=== PATIENT | male | born 1955 | race Caucasian/White ===

== ENCOUNTER → 2017-04-03 | Outpatient (CLI) | payer MEDICARE ==
--- NOTE | 2017-04-03 09:10 | MR ---
EXAMINATION TYPE: MR lumbar spine wo con DATE OF EXAM: 04/03/2017 COMPARISON: NONE HISTORY: Low back pain , spondylosis w/o myelopathy. Radiation to the right lower extremity for appro ximately 1 year. TECHNIQUE: Multiplanar, multisequence images of the lumbar spine were acquired. There is multilevel disc desiccation, Schmorl's nodes, and Modic type II endplate changes. T12-L1: There is a small broad-based disc bulge is seen with all paracentral annular tear and without central canal stenosis or neural foraminal narrowing. L1-L2: Right eccentric broad-based disc bulges identified creating mild right neural foraminal narrow ing. No evidence of left neural foraminal narrowing or spinal canal stenosis. L2-L3: Left eccentric disc broad-based disc bulge, facet arthropathy and ligamentum flavum buckling c reate moderate left neural foraminal narrowing and mild right neural foraminal narrowing as well as m ild spinal canal stenosis. L3-L4: Left eccentric broad-based disc bulge create mild to moderate bilateral neural foraminal narro wing with no evidence of spinal canal stenosis. L4-L5: Moderate facet arthropathy, ligamentum flavum buckling, and right lateral disc herniation supe rimposed upon a broad-based disc bulge create severe right neural foraminal narrowing impressing upon the exiting L4 nerve root and mild to moderate left neural foraminal narrowing . L5-S1: Normal disc appearance without desiccation. No herniation, protrusion or disc bulging. No ca nal stenosis is present. Foramina are patent bilaterally. Lumbar segments are intact. No paraspinal masses are identified. Conus medullaris has a normal appe arance terminating at T12-L1. Bone marrow signal is unremarkable other than a T2/T1 hyperintense dejuan gn hemangioma at T1. There is moderate hydronephrosis and right renal pelvic dilatation as well as periureteral fat strand ing as a result of an obstructing probable 1.0 cm calculus that is T2/T1 hypointense. Visualized port ion of the distal ureter is decompressed. Additionally within the left upper pole and lower pole ther e are multiple T2 hyperintense and T1 hypointense probable renal cysts, although incompletely charact erized on this examination. IMPRESSION: 1. Right lateral disc herniation at L4-L5 creating severe right neural foraminal narrowing impressing upon the exiting L4 nerve root. 2. Left eccentric broad-based disc bulge in combination with facet arthropathy and ligamentum flavum buckling create mild spinal canal stenosis at L2-L3. 3. Multilevel degenerative disc disease resulting in variable neural foraminal narrowing as described above. 4. Right moderate hydronephrosis and proximal ureteronephrosis as a result of a 1.0 cm obstructing ca lculus within the proximal ureter just distal to the ureteropelvic junction. Impression number [address] Crouch directly by Dr. Leon at 906am on 04/03/17.
== END | disposition home or self-care (01) ==
LOC: RADMRIMAIN 06:59
PROVIDERS: ATTEND Physical Medicine & Rehabilitation
DX: M48.06 Spinal stenosis, lumbar region (principal); M99.73 Connective tissue and disc stenosis of intervertebral foramina of lumbar region; M51.26 Other intervertebral disc displacement, lumbar region; M51.17 Intervertebral disc disorders with radiculopathy, lumbosacral region; E11.21 Type 2 diabetes mellitus with diabetic nephropathy; M48.8X6 Other specified spondylopathies, lumbar region
CPT/HCPCS: 72148

== ENCOUNTER → 2017-08-06 | Outpatient (CLI) | payer MEDICARE ==
--- NOTE | 2017-08-07 07:56 | XR ---
EXAMINATION TYPE: XR chest 2V DATE OF EXAM: 08/06/2017 COMPARISON: NONE HISTORY: Cough and congestion TECHNIQUE: Frontal and lateral views of the chest are obtained. FINDINGS: There is a trace right pleural effusion on the lateral image extending cranially. Post CAB G changes are seen of the chest with enlarged cardiac silhouette. No focal consolidation or pneumotho rax is noted. No pulmonary vascular congestion. Mild multilevel degenerative changes of the thoracic spine are noted. IMPRESSION: 1. No focal consolidation to suggest pneumonia. 2. Trace right pleural effusion and cardiomegaly may be on the basis of congestive heart failure. No current pulmonary vascular congestion.
== END | disposition home or self-care (01) ==
LOC: RADXRYALE 11:40
PROVIDERS: ATTEND Physician Assistant Medical
DX: J90 Pleural effusion, not elsewhere classified (principal); I51.7 Cardiomegaly
CPT/HCPCS: 71046

== ENCOUNTER → 2024-12-30 | Outpatient (CLI) | payer MEDICARE ==
--- NOTE | 2024-12-30 15:42 | MR ---
INDICATION: Patient age:Male; 69 years old; Reason for study: M54.59 LUMBAGO WITH SCIATICA, UNSPECIFIED SIDE; H. COMPARISONS: MR lumbar spine 04/03/2020. TECHNIQUE: Multi planar, multi sequence imaging was performed utilizing: T1-weighted, T2-weighted, a nd turbo inversion recovery imaging of the lumbar spine. The patient was not given contrast. FINDINGS: The lumbar vertebral bodies do have preserved heights. No spondylolisthesis. Mild dextrocu rvature of the lumbar spine with apex at L2-L3. Multilevel anterior osteophytosis. Multilevel small S chmorl's nodes without corresponding increased STIR signal. Multilevel type II Modic changes. Multile celsa disc desiccation is present. The conus medullaris and the distal spinal cord do appear unremarka ble with regards to their signal intensity and morphology. T12-L1: No significant disc pathology is identified. The spinal canal and neural foramen are patent L1-L2: No significant disc pathology is identified. The spinal canal and neural foramen are patent. L2-L3: Diffuse disc bulge with ligamentum flavum buckling resulting in moderate central canal stenos is. Mild to moderate right and moderate to severe left neural foraminal stenosis. L3-L4: Diffuse disc bulge resulting in mild to moderate central canal stenosis. Mild to moderate santosh ateral neural foraminal stenosis.. L4-L5: Diffuse disc bulge with ligamentum flavum buckling resulting in severe central canal stenosis. Bilateral facet arthropathy. Mild to moderate left neuroforaminal stenosis. Moderate severe right ne ural foraminal stenosis. L5-S1: No significant disc pathology is identified. The spinal canal and neural foramen are patent Other significant findings: None. IMPRESSION: Moderate multilevel degenerative disc disease and facet arthropathy. No discrete disc herniation. Sev ere spinal canal stenosis at L4-L5 with moderate spinal canal stenosis at L2-L3. Marginally progresse d from prior MRI. [facility], , 12/30/2024 3:40 PM
== END | disposition home or self-care (01) ==
LOC: RADMRIMAIN 14:40
PROVIDERS: ATTEND Orthopaedic Surgery Orthopaedic Surgery of the Spine
DX: M48.061 Spinal stenosis, lumbar region without neurogenic claudication (principal); M51.16 Intervertebral disc disorders with radiculopathy, lumbar region; M47.26 Other spondylosis with radiculopathy, lumbar region
CPT/HCPCS: 72148